=== PATIENT | female | born 1940 | race Caucasian/White ===

== ENCOUNTER 2022-11-23 06:01 | Day surgery (SDC) | payer MEDICARE, BC, SELFPAY ==
--- OUTSIDE RECORDS SUMMARY | 2022-11-23 06:06 | XMS_ITS | Continuity of Care Document ---
Author Name Unknown Organization [facility] Address [address] [address] [place] [address] Phone Care Team Providers Care Elevators Inspector Name Role Phone Rubén Peña MD Unavailable Unavailable Allergies, Adverse Reactions, Alerts Substance Reaction Status Criticality No Known Allergies Active No Inform ation Medications Medication Instructions Dosage Effective Dates (start - stop) Status Comments NITROGLYCERIN (unknown strength) take 1 capsule by oral route every 12 hours PRN Not Available - Active cyclobenzaprine 5 mg tablet take 1 tablet by oral route every day PRN - Active melatonin 5 mg tablet take 1 by Oral route once 1 - Active Questran 4 gram oral powder take 1 scoop by oral route up to 2 times every day dissolved in 2 to 6 ounces of water or noncarbonated beverage for loose stools - Active Pepcid 20 mg tablet take 1 tablet by oral route 2 times every day 20 MG - Active atorvastatin 40 mg tablet take 1 tablet by oral route every day 40 MG - Active Tirosint 88 mcg capsule take 1 capsule by oral route every day 88 MCG - Active multivitamin tablet take 1 tablet by ORAL route every day 1 tablet - Active aspirin 325 mg Tab take 1 by Oral route every day 1.00 - Active omeprazole 40 mg Cap, Delayed Release take 1 capsule (40MG) by ORAL route every day before a meal 40 MG - Active Procedures Procedure Date Offic/outpt E&m Estab Mod-hi 2 19 Ugi Endo; W/remov Fb Offic/outpt E&m Estab Low-mod 7 Offic/outpt E&m Estab Mod-hi 2 17 Offic/outpt E&m Estab Low-mod 6 Offic/outpt E&m Estab Mod-hi 2 15 Ugi Endo; W/endo Ultrasound Ex 15 Ugi Endo; W/bx 1/mx Ugi Endo; Dx W/wo Collec Specm 12 Ugi Endo; Dx W/wo Collec Specm 11 Ugi Endo; W/balloon Dilat Esop 11 Ugi Endo; W/balloon Dilat Esop 11 Ugi Endo; W/remov Fb Ugi Endo; W/balloon Dilat Esop 11 Ugi Endo; W/balloon Dilat Esop 11 Ugi Endo; W/remov Tumor/les-sn 11 Unlisted Procedure Esophagus Ugi Endo; W/endo Untrasound Ex 11 Advance Directives Directive Yes / No Effective Date File Name No Information Encounters Encounter Description Practice Location Reason(s) For Visit Diagnoses Date Provider Providers Copied on Encounter [facility], [address] [address], [place], [place], [id number], tel:[phone] [facility] No Information 9 Casey Montana. [address], [id number], [place]. tel:[phone] Offic/outpt E&m Estab Mod-hi 2 [facility] [address] [address], [place], [place], [address], [place] tel:[phone] [facility] GI Symptoms or Concerns (chief complaint) Dumping syndromeEleva varghese blood-pressur e reading, w/o diagnosis of htn 9 Virginia Tan [address], [id number], [place]. tel:[phone] Alka Jacinto MD. [phone] Rudolph MD. tel:[phone] Carbone MD. tel:[phone] [facility], [address] [address], [place], [id number], [place] tel:[phone] [facility] No Information 8 Cameron Bautista. [address] [facility], [place], [place], [id number], [place]. [phone] Referring Provider: Luanne Barnes MD, [address] [facility] [address], [place], [address] . tel:[phone] Offic/outpt E&m Estab Low-mod [facility], [address] [address], [place], [id number], [place] tel:[phone] [facility] GI Symptoms or Concerns (chief complaint) Diarrhea, unspecified type 7 Adan APPLE October. [address] [facility], [place], [place], [address], [place]. [phone] Alka Jacinto MD. [phone] Rudolph MD. tel:[phone] Carbone MD. tel:[phone] erring Provider: Referral Self. [facility], [address] [address], [place], [id number], [place] tel:[phone] [facility] No Information 7 No Information Offic/outpt E&m Estab Mod-hi 2 [facility], [address] [address], [place], [id number], [place] tel:[phone] [facility] GI Symptoms or Concerns (chief complaint) Diarrhea, unspecified typeNauseaRig ht upper quadrant abdominal painDietary counseling and surveillance 2 7 No Information Alka Jacinto MD. [phone] Rudolph MD. tel:[phone] Carbone MD. tel:[phone] erring Provider: Referral Self. Offic/outpt E&m Estab Low-mod [facility], [address] [address], [place], [id number], [place] tel:[phone] [facility] GI Symptoms or Concerns (chief complaint) Dysphagia, pharyngoesoph ageal phase 6 Chance Ann. [address] [facility], [facility] [address], [place], [place], [id number], [place]. tel:[phone] Alka Jacinto MD. tel:[phone] Rudolph MD. tel:[phone] Carbone MD. tel:[phone] erring Provider: Olive Roy DO, [address] [place] [address], [address]. tel:[phone] [facility], [address] [address], [place], [address], [place] tel:[phone] [facility] Dysphagia, Unspecified Sep-0 5 No Information Offic/outpt E&m Estab Mod-hi 2 [facility], [address] [address], [place], [id number], [place] tel:[phone] [facility] GI Symptoms or Concerns (chief complaint) BelchingSensa tion of foreign body in throatDysphag ia, UnspecifiedOt her abnormalities of breathingDysp hagia, unspecifiedFl atulence 5 No Information Alka Jacinto MD. tel:[phone] Rudolph MD. tel:[phone] erring Provider: Rene Carbone MD S, [address], [place], [address]. tel:[phone] [facility], [address] [address], [place], [address], [place] tel:[phone] [facility] No Information 5 Virginia Resendiz. [address] [facility], [facility] [address], [place], [address], [place]. [phone] Referring Provider: Alka Jacinto MD, [address] [place] [address], [address]. tel:[phone] [facility], [address] [address], [place], [id number], [place] tel:[phone] [facility] Post-op Aftercare NecDysphagia, UnspecifiedPo st-op Aftercare Nec 2 Dennis Mcfarlane. [address] [facility], [facility] [address], [place], [address], [place]. [phone] [facility], [address] [address], [place], [address], [place] tel:[phone] [facility] Post-op Aftercare NecDysphagia, UnspecifiedDy sphagia, UnspecifiedPo st-op Aftercare Nec 1 Dennis Mcfarlane. [address], [id number], [place]. tel:[phone] Referring Provider: Alka Jacinto MD, [address] [place] [address], [address]. tel:[phone] [facility], [address] [address], [place], [id number], [place] tel:[phone] [facility] Post-op Aftercare NecEsoph Stricture/paige atzki RingEsoph Stricture/paige atzki Ring Kel- 1 Dennis Mcfarlane. [address], [id number], [place]. tel:[phone] Referring Provider: Alka Jacinto MD, [address] [place] [address], [address]. tel:[phone] [facility], [address] [address], [place], [id number], [place] tel:[phone] [facility] Post-op Aftercare NecEsoph Stricture/paige atzki RingPostsurgi griffin States NecForeign Body Esophagus 1 Dennis Mcfarlane. [address] [facility], [facility] [address], [place], [address], [place]. tel:[phone] Referring Provider: Alka Jacinto MD, [address] [place] [address], [address]. tel:[phone] [facility], [address] [address], [place], [address], [place] tel:[phone] [facility] Esoph Stricture/paige atzki RingEsoph Stricture/paige atzki Ring 1 Dennis Mcfarlane. [facility], [facility] [address], [place], [address], [place]. tel:[phone] Referring Provider: Alka Jacinto MD, [address] [place] [address], [address]. tel:[phone] [facility], [address] [address], [place], [address], [place] tel:[phone] [facility] No Information 1 Danial Bautista. [address] [facility], [facility] [address], [place], [address], [place]. tel:[phone] Referring Provider: Michele APPLE I, [address] [facility] [address], [place], [address] . tel:[phone] [facility], [address] [address], [place], [address], [place] tel:[phone] [facility] No Information 1 Meaghan Wolff. [address] [facility], [facility] [address], [place], [address], [place]. tel:[phone] Referring Provider: Binh Beltran, [address], [place], [address]. tel:[phone] [facility], [address] [address], [place], [address], [place] tel:[phone] [facility] No Information Francisca Crews. [address] [facility], [place], [place], [id number], [place]. tel:[phone] Referring Provider: Binh Rudolph MD [facility], [address], [place], [address]. tel:[phone] Family History Family Member Type Diagnosis Age At Onset Sister Problem (finding) fibromyalgia Daughter Problem (finding) Alive and well Father Problem (finding) Pulmonary embolism ([place]au se Of ) Mother Problem (finding) Pulmonary embolism ([place]au se Of ) Father Problem (finding) alcoholism Father Problem (finding) Brother Problem (finding) Alive and well Mother Problem (finding) Son Problem (finding) Alive and well Sister Problem (finding) GERD Immunizations Vaccine Date Status Comments Influenza virus vaccine, injectable, quadrivalent, split virus, preservative free, 3 years or older Fluarix Quad administered Note: Invalid docume nted admin date was . ; Source: Other Provider Influenza, injectable, split virus,???preservative free, 3 years and older Fluvirin administered Note: Invalid docume nted admin date was . ; Source: Other Provider Payers Payer name Insurance type Covered libertarian ID Authoriza tion(s) [employer] [place] [employer] BL [id number] Social History Type Description Quantity Date Captured Comments Sex Female Smoking Status No Information Chief Complaint And Reason For Visit No Information Reason For Referral Reason For Referral No Information Plan Of Treatment Date Type Action Status Goal Lifestyle education regardin g diet completed Referral Ordered: Xray Abdomen; Sitz Marker Study/CTS Appointment date/timeframe: 01/08/2017 ordered Referral Ordered: Xray Esophagus (Barium Swallow Study) Appointment date/timeframe: 04/16/2015 ordered Referral Ordered: Video Swallow With Speech Pathologist/Occupational Therapist Appointment date/timeframe: 04/16/2015 ordered History Of Present Illness Encounter Date Complaint History Of Prese nt Illness GI Symptoms or Concerns Sarian Mcbride is a pleasant 79-year-old female with history of esophagectomy with gastric pull-up in 2010 due to gastric cancer. She has had a history of cholecystectomy, appendectomy, and coronary artery disease. We have seen her several times in the past. We have seen her in the past for diarrhea thought to be due to dumping syndrome.She presents today with a different complaint. She complains of cold sweats, feeling dizzy, and diaphoretic. This usually happens when she is walking or standing, but sometimes when she is sitting and one time it happened when she was sitting. About one every 5 times, it will happen while she is having a bowel movement. She feels like she is going to pass out and this lasts for about 20 to 30 minutes.She sits still or lies still and the feeling passes. Occasionally, she will have nausea without vomiting. Does not happen directly after she eats.The frequency of this has increased. It usually happened every 3 to 4 months, but now is nicole GI Symptoms or Concerns Sarina is a 76-year-old woman who presents to clinic today at [facility] for ongoing management of persistent diarrhea that has been problematic since 2011, but over the past two months, she feels has been even more problematic. 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 She underwent a recent colonoscopy by a surgeon in [place], which is where she lives with normal random colon biopsies per her report, although that procedure report is not available for my review today. Her most recent upper endoscopy was on GI Symptoms or Concerns Ms. Wsely campos is very pleasant 76-year-old female with a complex past medical history who presents today regarding diarrhea and nausea.Her past medical history is significant for esophageal with gastric pull up in 2010 secondary to gastric cancer. Also with previous surgical history of cholecystectomy, appendectomy, angioplasty with stents x2, cataract extraction, ventral hernia repair in 2010 and 2011 and D and C in 2013. She has recently followed up with Dr. Guzman in October 2016 and was deemed in remission in regards to her gastric cancer.Her past medical history is also significant for hypothyroidism, vitamin D deficiency, hyperlipidemia, sleep apnea with a CPAP unit, hypertension, history of NV, recurrent PVCs, GERD, arthritis, colonic polyps per her mail report. Last colonoscopy was in 2010.She presents today because she has been having severe diarrhea symptoms. She states that she will have at least three episodes of diarrhea a day if she does not eat, but even more if she does eat. She will have immediate urgent diarrhea after eating, which is six times per day as well as waking in the middle of the night, two to three times. She often has accidents and is currently having to wear diapers. She is not seeing any blood in the stools. She does have associated lower abdominal cramping before a bowel movement. She has associated nausea and this has been a chronic issue for her. She states that chewing Rolaids does help the nausea as she feels that it breaks up the air that sits in her gastric tube. Of note, she has had issues with dumping syndrome in the past, but after increasing her protein intake last year she had significant improvement and actually even had some constipation. She was doing very well up until September of this year when she had sudden acute onset of the diarrhea. She did see her primary care doctor recently and had blood work done including a normal TSH level. She also completed stool studies and dropped this off two days ago, although I do not have those results and she has not heard any results as of today. She did have a urinalysis completed and was diagnosed with a bladder infection and has been started on antibiotics. She does report she has recurrent bladder infections and did receive antibiotics a few months ago. She denies any change in her medicines in September at the time when the diarrhea started. She has tried Imodium. However, this makes her feel severely ill and worsening of pain and nausea, so she has not continued this.Her second issue is that she has been having right upper quadrant pain for the past four days. It does seem to be after eating. It is a moderate pain described as an ache. It does not occur when she has liquids. She occasionally does have dysphagia symptoms and has been previously seen in the esophageal clinic with last appointment about a year ago. At that time, it is recommended she avoid difficult to swallow food such as breads or meats. Her previous workup did include video swallow with esophagram that did not show any evidence of aspiration. Her last upper endoscopy and EUS were done in December 2015, which revealed anastomosis at 19 cm that was widely patent. Biopsies of the anastomosis showed squamous in glandular columnar mucosa with gastric foveolar appearance. No intestinal gallbladder cells or metaplasia were identified. There were mild chronic inflammation with reactive changes negative for dysplasia or malignancy. Random gastric biopsies showed mild chronic inflammation with reactive foveolar or epithelial changes, negative for H. pylori or malignancy. EUS did not reveal any signs of mass, lesion or infiltrative process. She is currently taking famotidine 20 mg daily and omeprazole 40 mg daily. She does take a daily aspirin, but avoids all other NSAIDs. GI Symptoms or Concerns This is a 75-year-old female who returns to clinic for followup regarding dysphagia. 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 She had an esophagectomy with gastric pull up in 2010. Thirty lymph nodes were removed, all of which were negative. She has been seen periodically in the past for dysphagia and has had her anastomosis dilated in the past.Her last upper endoscopy and endoscopic ultrasound were done in December 2015. This revealed an anastomosis at 19 cm that was widely patent. Biopsies of the anastomosis showed squamous and glandular columnar mucosa with gastric foveolar appearance. No intestinal goblet cells or metaplasia identified. There was mild chronic inflammation with reactive changes, negative for dysplasia or malignancy. Random gastric biopsies showed mild chronic inflammation with reactive foveolar or epithelial changes, negative for H. pylori or malignancy. Endoscopic ultrasound did not reveal any signs of ma GI Symptoms or Concerns Sarina Mcbride is a 75-year-old female who presents to clinic today for evaluation of several GI symptoms. 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 She had an esophagectomy with gastric pull-up in 2010. Thirty lymph nodes were removed all of which were negative.We have seen the patient periodically for dysphagia and she has had the anastomosis dilated in the past.The patient comes in today stating that she has frequent belching with any oral intake. She can also wake up from sleep at night with the feeling of a collection of fluid in her throat. This collection of fluid feels like mucus or saliva. She denies feeling that the fluid is regurgitating through her chest. The patient sleeps in a recliner and is basically upright when she falls asleep. The patient does not eat or drink for about three hours prior to falling asleep.The patient's appetite has been okay, though some of her symptoms have decreased her Functional Status Date Functional Assessmen t No Information Instructions Date Instruction Additional Infor jef 1. Main treatment is dietary management with avoiding simple carbs and eating more protein and complex carbohydrates. I offered to send her to a dietitian and she deferred.2. Offered to send her to a neurologist to make sure there was no neurological cause for her symptoms such as autonomic nerve disease aside from dumping syndrome. However, she declined at this time.3. Recommend that she keep something like glucose tablets or hard candy with her so that she could try taking that when she has an episode. If her symptoms are related to low blood sugar, then it should be helpful.4. Follow up in 2 months.Thank you for allowing me to participate in the care of your patient. Please feel free to call with any questions or concerns. Related to Dumping syndrome 1. To gauge your int estinal motility, would recommend performing a transit test as we discussed-I will call with results2. After last x-ray, go ahead and start Questran 1 scoop twice a day to promote bile binding from your prior stomach pull through and gallbladder removal but also promote relaxation of your intestinal muscles and nerves3. Return to clinic in 4 months Related to Diarrhea, unspecified type Xray Abdomen; Sitz Marker Study/ CTS Please call when sto ol studies results are available. You can reach my patient coordinator, Milly, at extension [phone]. If negative, we can consider trial of questran to help with symptoms and proceed with colonoscopy with random colon biopsies.If right upper pain continues, please notify us and we can consider EGD and possible imaging. Continue to use the famotidine and omeprazole. Follow up in the motility disorder clinic in 6 weeks if infection is negative Related to Diarrhea, unspecified type Lifestyle education regarding di et Related to Dietary counseling and surveillance Assessments Type Assessment Date No Information Patient Care Teams Name Effective Dates (start - stop) Status Members No Information
[2022-11-23] MEDS: LACTATED RINGERS 1000 ML 1,000 ML 100 ML IV (06:10)
[2022-11-23 06:28] VITALS: BMI 25.0
[2022-11-23 06:37] VITALS: BP 121/63; PULSE 61; RESP 20; TEMP 36.8; O2SAT 96
[2022-11-23] MEDS: SODIUM CHLORIDE 0.9 % (FLUSH) 10 ML SYRINGE IVF (07:01)
--- NOTE | 2022-11-23 07:15 | CRLHL7_ITS ---
For Patients: As a result of the Cures Act, medical imaging exams and procedure reports are released immediately into your electronic medical record. You may view this report before your referring provider. If you have questions, please contact your health care provider. Indication: Right 1st MPJ Cheilectomy Technique: Two fluoroscopic images of the right foot. Fluoroscopic time 2.2 seconds. IMPRESSION: Fluoroscopic guidance for 1st MTP cheilectomy. Dictated by Michele [place] MD @ 11/23/2022 9:14:02 AM (Electronically Signed)
[2022-11-23] MEDS: CEFAZOLIN 1 GM inj IVP (07:17)
[2022-11-23 08:20] VITALS: BP 109/74; PULSE 50; RESP 16; TEMP 36.4; O2SAT 98
--- NOTE | 2022-11-23 08:24 | W.ANESCHARGE ---
Anesthesia Charges Start Date/Time Anesthesia Start Date: 11/23/22 Anesthesia Start Time: 07:07 Stop Date/Time Anesthesia Stop Date: 11/23/22 Anesthesia Stop Time: 08:22 Summary Extremes of Age - Over 70 or under 1: DOCTOR OF DENTAL MEDICINE
--- NOTE | 2022-11-23 08:26 | PM.PROC ---
Procedure Note Date Seen: 11/23/22 Date of procedure: 11/23/22 Will [facility] bill your pro fee for this procedure?: No Procedure Description: Preoperative diagnosis: Hallux rigidus right foot postop diagnosis: Hallux rigidus right foot procedure: Cheilectomy 1st MPJ right anesthesia: Mac with local hemostasis: Ankle tourniquet 250 mm Hg Estimated blood loss: 2 mL complications: None apparent indication for surgery: Patient seen in clinic for painful arthritic right great toe joint. She has elected to have surgical care. I reviewed the procedure, recovery, expectations and is potential complications. these include but are not limited to: infection, poor wound healing, potential need for future surgery, recurrence, continued pain, deep venous thrombosis, pulmonary embolism and possible . She understands risks written consent was obtained. Procedure: Patient brought up room placed supine position operating table. IV sedation was initiated local anesthetic injected into the right foot. She was prepped and draped in normal aseptic manner. standard time-out protocol was followed. Left foot was exsanguinated and the tourniquet inflated. Dorsal linear incision was made over the 1st metatarsophalangeal joint. The incision was carried through skin subcutaneous tissues. Linear capsular incision was made and the capsular tissues reflected away from the head of the 1st metatarsal and proximal phalangeal base. Significant number of osteophytes were noted and removed. Large bony prominence off both the 1st metatarsal head and proximal phalangeal base was then removed with a rongeur and a power bur. Wound was thoroughly irrigated normal sterile saline. C-arm images confirmed adequate resection of the dorsal bone. Joint capsule was repaired with 3-0 Vicryl. Subcutaneous tissues closed with 4-0 Monocryl and skin closed with 4-0 Prolene sterile dressing was applied and the tourniquet was released. Normal capillary fill time returned to all digits. She was transferred from OR to PACU vital signs stable and vascular status intact. She is given both written and verbal postop instructions. She was given oxycodone for pain. She is weight-bearing as tolerated. She will utilize a cane. She will follow-up in 3 days. Condition: stable Disposition: same day
[2022-11-23 08:37] VITALS: BP 133/72; PULSE 47; RESP 16; O2SAT 99
[2022-11-23 08:45] VITALS: BP 143/76; PULSE 50; RESP 16; O2SAT 97
[2022-11-23 09:17] VITALS: BP 147/77; PULSE 50; RESP 20; TEMP 36.5; O2SAT 96
[2022-11-23 09:35] VITALS: BP 152/80; PULSE 60; RESP 20; O2SAT 96
--- NOTE | 2022-11-23 10:00 | W.ANESCHARGE ---
Anesthesia Charges Start Date/Time Anesthesia Start Date: 11/23/22 Anesthesia Start Time: 07:07 Stop Date/Time Anesthesia Stop Date: 11/23/22 Anesthesia Stop Time: 08:22 Summary Extremes of Age - Over 70 or under 1: MDA
== END 2022-11-23 09:35 | disposition home or self-care (01) ==
PROVIDERS: PCP Family Medicine; Visit Provider Podiatrist
PROC: (CPT 28289; principal; 2022-11-23 07:15)
DX: M20.21 Hallux rigidus, right foot (principal)
CPT/HCPCS: 28289; 01480; 73620; 76000; 99100; J0690; J2405; J2704; J3010; J7120